=== PATIENT | female | born 1975 | race Caucasian/White ===

== ENCOUNTER 2022-02-21 16:40 | Outpatient (CLI) | payer MEDICAID | END 2022-02-21 16:41 | disposition critical access hospital (66) | LOC: EMS 16:40 | DX: M54.50 Low back pain, unspecified (principal); R25.9 Unspecified abnormal involuntary movements | CPT/HCPCS: A0425; A0429; A0999 ==

== ENCOUNTER 2022-02-21 17:03 | Emergency (ER) | payer MEDICAID ==
[2022-02-21 17:12] VITALS: BP 115/78
[2022-02-21 17:54] LABS: BILIRUBIN,URINE NEGATIVE (NEGATIVE); GLUCOSE, URINE (UA) NEGATIVE (NEGATIVE); KETONES,URINE (UA) NEGATIVE (NEGATIVE); LEUKOCYTE ESTERASE, URINE NEGATIVE (NEGATIVE); NITRITE,URINE NEGATIVE (NEGATIVE); OCCULT BLOOD,URINE NEGATIVE (NEGATIVE); PH,URINE 8.5 PH (5.0-7.5); PROTEIN,URINE NEGATIVE (NEGATIVE); UROBILINOGEN,URINE 0.2 (NORMAL) E.U./dL (NORMAL)
[2022-02-21 17:55] LABS: CLARITY,URINE CLEAR (CLEAR); HCG UR QUAL NEGATIVE
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
== END 2022-02-21 18:17 | disposition home or self-care (01) ==
LOC: ED 17:03
DX: M54.9 Dorsalgia, unspecified (principal)
CPT/HCPCS: 80053; 81001; 81003; 81025; 83690; 85025; 87086; 99281; 99283